=== PATIENT | male | born 1980 ===

== ENCOUNTER 2018-03-14 13:16 | Emergency (ER) | payer OTHER ==
[2018-03-14 13:50] VITALS: BP 152/101
[2018-03-14] MEDS ORDERED: Ibuprofen TAB* 600 MG PO ONE (16:11)
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
--- NOTE | 2018-03-14 16:47 | RAD ---
INDICATION: Low back pain COMPARISON: None. TECHNIQUE: 5 views of the lumbar spine were obtained. FINDINGS: The vertebra are in normal alignment. No fracture is seen. There is mild loss of intervertebral disc height at L4/L5 and L5/S1. IMPRESSION: Loss of intervertebral disc height at L4/L5 and L5/S1 could be due to degenerative disc disease.
== END 2018-03-14 17:20 | disposition home or self-care (01) ==
LOC: UCEAST 13:16
DX: M54.5 Low back pain (principal)
CPT/HCPCS: 72110; 99202; A9270-GY; G0463